=== PATIENT | male | born 1950 | race African-American/Black ===

== ENCOUNTER → 2016-09-02 | Day surgery (SDC) | payer MEDICARE, MEDICAID ==
[~2016-09-02] MED LIST: LIDOCAINE HCL 1% 20ML VIAL (Pyxis) INJ ONE; SODIUM BICARBONATE 8.4% 1 MEQ/ML 50ML SYR IV ONE
[2016-09-02 17:38] LABS: BODY FLUID MONOCYTES 76 %; BODY FLUID WBC 28 /cu mm (0-200)
[2016-09-02 18:28] LABS: PROTEIN BODY FLUID 1.3 gm/dL
== END | disposition home or self-care (01) ==
LOC: RAD 11:28
PROVIDERS: ATTEND Internal Medicine Gastroenterology
DX: R18.8 Other ascites (principal); K74.69 Other cirrhosis of liver; K75.89 Other specified inflammatory liver diseases
CPT/HCPCS: 49083; 82040; 83615; 84157; 87070; 87205; 89050; J3490

== ENCOUNTER → 2016-10-22 | Outpatient (CLI) | payer MEDICARE, MEDICAID ==
[2016-10-22 15:58] LABS: HEMOGLOBIN. 10.8 g/dL (14.0-18.0); MEAN CORPUSCULAR HEMOGLOBIN 28.2 pg (28.0-32.0); MEAN CORPUSCULAR HGB CONC 32.6 g/dL (31.0-37.0); MEAN CORPUSCULAR VOLUME 86.5 fL (80.0-94.0); MEAN PLATELET VOLUME 8.4 fl (7.4-10.4); PLATELET 107 x1000/uL (130-400); RED BLOOD CELL COUNT 3.81 mill/uL (4.7-6.1); RED CELL DISTRIBUTION WIDTH 14.5 % (11.6-14.6); WHITE BLOOD COUNT 3.8 x1000/uL (4.5-11.0)
[2016-10-22 16:02] LABS: DIFFERENTIAL COMMENT 1
[2016-10-22 16:03] LABS: INR 1.1; PARTIAL THROMBOPLASTIN TIME 27.3 sec (24.0-34.0); PROTHROMBIN TIME 11.6 sec
[2016-10-22 17:28] LABS: ANISOCYTOSIS 1+; ATYPICAL LYMPHOCYTES 1
[2016-10-22 17:30] LABS: GIANT PLATELETS FEW; PLATELET ESTIMATE SLIGHTLY DECREASED; PLATELET SATELLITISM FEW
== END | disposition home or self-care (01) ==
LOC: LAB 15:32
PROVIDERS: ATTEND Specialist
DX: R18.8 Other ascites (principal); I21.3 ST elevation (STEMI) myocardial infarction of unspecified site
CPT/HCPCS: 36415; 85025; 85610; 85730

== ENCOUNTER → 2016-10-30 | Day surgery (SDC) | payer MEDICARE, MEDICAID | END | disposition home or self-care (01) | LOC: RAD 12:51 | PROVIDERS: ATTEND Specialist | DX: R18.8 Other ascites (principal) | CPT/HCPCS: 49083; J3490 ==

== ENCOUNTER → 2016-11-28 | Day surgery (SDC) | payer MEDICARE, MEDICAID ==
[2016-11-28 08:37] LABS: BASOPHILS % 1.1 % (0.0-2.0); EOSINOPHILS % 5.5 % (0.0-5.0); HEMATOCRIT. 35.2 % (42.0-52.0); HEMOGLOBIN. 11.4 g/dL (14.0-18.0); LYMPHOCYTES % 40.2 % (20.0-50.0); MEAN CORPUSCULAR HEMOGLOBIN 28.1 pg (28.0-32.0); MEAN CORPUSCULAR VOLUME 87.1 fL (80.0-94.0); NEUTROPHILS % 42.2 % (40.0-76.0); PLATELET 135 x1000/uL (130-400); RED BLOOD CELL COUNT 4.05 mill/uL (4.7-6.1); RED CELL DISTRIBUTION WIDTH 15.1 % (11.6-14.6)
[2016-11-28 08:46] LABS: INR 1.1; PARTIAL THROMBOPLASTIN TIME 27.3 sec (24.0-34.0); PROTHROMBIN TIME 11.2 sec
[2016-11-28 08:58] LABS: AMMONIA 22 uMol/L (<32); CARBON DIOXIDE 30 mEq/L (21-32); CHLORIDE 110 mEq/L (98-107)
== END | disposition home or self-care (01) ==
LOC: US 08:07
PROVIDERS: ATTEND Specialist
DX: R18.8 Other ascites (principal)
CPT/HCPCS: 36415; 49083; 80053; 82140; 85025; 85610; 85730

== ENCOUNTER → 2016-12-17 | Day surgery (SDC) | payer MEDICARE, MEDICAID ==
[~2016-12-17] MED LIST changes: +SODIUM BICARBONATE 4% (2.4MEQ) 5ML VIAL IV ONE; -SODIUM BICARBONATE 8.4% 1 MEQ/ML 50ML SYR IV ONE
== END | disposition home or self-care (01) ==
LOC: RAD 10:38
PROVIDERS: ATTEND Internal Medicine Gastroenterology
DX: R18.8 Other ascites (principal)
CPT/HCPCS: 49083; J3490

== ENCOUNTER 2017-01-06 18:45 | Inpatient (IN) | payer MEDICARE, MEDICAID ==
[~2017-01-06] VITALS: Ht 167.6 cm; Wt 73.0 kg
[2017-01-06 20:00] VITALS: BP 129/70
[2017-01-06] MEDS ORDERED: CLONIDINE 0.1MG TABLET NG PRN (21:00)
[2017-01-06] MEDS ORDERED: ONDANSETRON HCL 4MG/2ML VIAL IV PRN (21:00)
[2017-01-06] MEDS ORDERED: DIPHENHYDRAMINE 50MG/ML VIAL IV PRN (21:00)
[2017-01-06] MEDS ORDERED: GUAIFENESIN 200MG/10ML SUGAR FREE UDC NG PRN (21:00)
[2017-01-06] MEDS ORDERED: IPRATROPIUM/ALBUTEROL 0.5-3(2.5)MG/3ML NEB HHN PRN (21:00)
[2017-01-06] MEDS ORDERED: NITROGLYCERIN 0.4MG TABLET SL SL PRN (21:00)
[2017-01-06] MEDS ORDERED: NA PHOS,M-B/NA PHOS,DI-BA ENEMA 118ML PR PRN (21:48)
[2017-01-06] MEDS ORDERED: MAGNESIUM/ALUMINUM HYDROXIDE/SIMETHICONE 30ML UDC NG PRN (21:48)
[2017-01-07] MEDS: ATORVASTATIN CALCIUM 10MG TABLET NG SCH ×2 (00:28→21:32)
[2017-01-07] MEDS: LEVETIRACETAM 500MG/5ML CUP NG SCH ×3 (00:28→21:32)
[2017-01-07] MEDS: ACETAMINOPHEN 650MG/20.3ML UDC NG PRN ×3 (00:28→13:09)
[2017-01-07 07:27] LABS: HEMATOCRIT 33.5 % (42.0-52.0); HEMOGLOBIN 10.7 g/dL (14.0-18.0); MEAN CORPUSCULAR HEMOGLOBIN 28.3 pg (28.0-32.0); MEAN CORPUSCULAR VOLUME 88.7 fL (80.0-94.0); PLATELET 97 x1000/uL (130-400); RED BLOOD CELL COUNT 3.78 mill/uL (4.7-6.1)
[2017-01-07 07:54] LABS: CARBON DIOXIDE 25 mEq/L (21-32); CHLORIDE 115 mEq/L (98-107)
[2017-01-07 08:00] VITALS: BP 119/62
[2017-01-07 08:00] LABS: PREALBUMIN 10.3 mg/dL (20.0-40.0)
[2017-01-07] MEDS: ASPIRIN 81MG TABLET NG SCH (08:34)
[2017-01-07] MEDS: ZINC SULFATE 220 MG ( 50 ) CAPSULE NG SCH (08:34)
[2017-01-07] MEDS: ENOXAPARIN 40MG/0.4ML SYR SUBCUT SCH (08:35)
[2017-01-07] MEDS ORDERED: PANTOPRAZOLE SODIUM 40 MG/VIAL IV SCH (09:00)
[2017-01-07] MEDS ORDERED: DOCUSATE SODIUM 100MG CAPSULE NG SCH (09:00)
[2017-01-07 11:57] VITALS: BP 119/62
[2017-01-07] MEDS ORDERED: SODIUM POLYSTYRENE SULFONATE 15 G/60 ML BOT PO NR (15:15)
[2017-01-07] MEDS ORDERED: CEFTRIAXONE 2 G in DEXTROSE 5% WATER 50 ML IV SCH (16:00)
[2017-01-07 20:00] VITALS: BP 108/65
[2017-01-08] MEDS: ACETAMINOPHEN 650MG/20.3ML UDC NG PRN ×3 (04:29→18:51)
[2017-01-08 06:12] LABS: BASOPHILS % 1.1 % (0.0-2.0); EOSINOPHILS % 2.7 % (0.0-5.0); HEMATOCRIT. 31.2 % (42.0-52.0); HEMOGLOBIN. 10.1 g/dL (14.0-18.0); LYMPHOCYTES % 19.4 % (20.0-50.0); MEAN CORPUSCULAR HEMOGLOBIN 28.5 pg (28.0-32.0); MEAN CORPUSCULAR VOLUME 87.6 fL (80.0-94.0); MEAN PLATELET VOLUME 8.6 fl (7.4-10.4); MONOCYTES % 6.6 % (2.0-8.0); NEUTROPHILS % 70.2 % (40.0-76.0); PLATELET 82 x1000/uL (130-400); RED BLOOD CELL COUNT 3.56 mill/uL (4.7-6.1); RED CELL DISTRIBUTION WIDTH 16.2 % (11.6-14.6)
[2017-01-08 06:31] LABS: CARBON DIOXIDE 26 mEq/L (21-32); CHLORIDE 117 mEq/L (98-107)
[2017-01-08 07:58] VITALS: BP 122/68
[2017-01-08] MEDS ORDERED: PANTOPRAZOLE 40MG DR TABLET PO SCH (10:00)
[2017-01-08] MEDS: DOCUSATE SODIUM SUGAR FREE 100MG/10ML UDC NG SCH (10:59)
[2017-01-08] MEDS: ASPIRIN 81MG TABLET NG SCH (10:59)
[2017-01-08] MEDS: LEVETIRACETAM 500MG/5ML CUP NG SCH ×2 (10:59→23:37)
[2017-01-08] MEDS: ZINC SULFATE 220 MG ( 50 ) CAPSULE NG SCH (10:59)
[2017-01-08] MEDS ORDERED: LANSOPRAZOLE 30MG DR CAPSULE NG SCH (11:00)
[2017-01-08] MEDS: ENOXAPARIN 40MG/0.4ML SYR SUBCUT SCH (11:00)
[2017-01-08] MEDS: METOCLOPRAMIDE 10MG/10 ML UDC NG SCH ×2 (18:51→23:37)
[2017-01-08] MEDS: CEFTRIAXONE 2 G in DEXTROSE 5% WATER 50 ML IV SCH (18:51)
[2017-01-08 20:00] VITALS: BP 122/84
[2017-01-08] MEDS: LACTULOSE 20G/30ML UDC NG PRN (23:38)
[2017-01-08] MEDS: ATORVASTATIN CALCIUM 10MG TABLET NG SCH (23:39)
[2017-01-09] MEDS: METOCLOPRAMIDE 10MG/10 ML UDC NG SCH ×4 (06:37→23:56)
[2017-01-09] MEDS: LANSOPRAZOLE 30MG DR CAPSULE NG SCH (06:38)
[2017-01-09 07:00] LABS: EOSINOPHILS % 3.1 % (0.0-5.0); HEMATOCRIT. 32.6 % (42.0-52.0); HEMOGLOBIN. 10.6 g/dL (14.0-18.0); LYMPHOCYTES % 24.1 % (20.0-50.0); MEAN CORPUSCULAR HEMOGLOBIN 28.6 pg (28.0-32.0); MEAN CORPUSCULAR VOLUME 87.7 fL (80.0-94.0); MEAN PLATELET VOLUME 9.6 fl (7.4-10.4); MONOCYTES % 7.3 % (2.0-8.0); NEUTROPHILS % 64.5 % (40.0-76.0); PLATELET 84 x1000/uL (130-400); RED BLOOD CELL COUNT 3.72 mill/uL (4.7-6.1); RED CELL DISTRIBUTION WIDTH 16.2 % (11.6-14.6)
[2017-01-09 07:39] LABS: CARBON DIOXIDE 25 mEq/L (21-32); CHLORIDE 117 mEq/L (98-107); PHOSPHORUS 3.3 mg/dL (2.5-4.9); TOTAL IRON BINDING CAPACITY 210 ug/dL (250-450)
[2017-01-09 07:56] LABS: FOLIC ACID (FOLATE) SERUM 15.5 ng/mL (>5.38)
[2017-01-09 08:00] VITALS: BP 107/71
[2017-01-09] MEDS: LACTULOSE 20G/30ML UDC NG PRN (08:57)
[2017-01-09] MEDS: ASPIRIN 81MG TABLET NG SCH (08:57)
[2017-01-09] MEDS: DOCUSATE SODIUM SUGAR FREE 100MG/10ML UDC NG SCH (08:57)
[2017-01-09] MEDS: ZINC SULFATE 220 MG ( 50 ) CAPSULE NG SCH (08:57)
[2017-01-09] MEDS: ACETAMINOPHEN 650MG/20.3ML UDC NG PRN ×2 (08:57→20:25)
[2017-01-09] MEDS: ENOXAPARIN 40MG/0.4ML SYR SUBCUT SCH (08:59)
[2017-01-09] MEDS: LEVETIRACETAM 500MG/5ML CUP NG SCH ×2 (09:02→20:25)
[2017-01-09] MEDS: CEFTRIAXONE 2 G in DEXTROSE 5% WATER 50 ML IV SCH (16:09)
[2017-01-09] MEDS: ATORVASTATIN CALCIUM 10MG TABLET NG SCH (20:24)
[2017-01-09 20:27] LABS: CLARITY URINE CLOUDY (CLEAR); COLOR URINE DARK YELLOW (YELLOW); GLUCOSE URINE NEGATIVE (NEGATIVE); KETONES URINE NEGATIVE (NEGATIVE); LEUKOCYTE ESTERASE URINE 2+ (NEGATIVE); NITRITE URINE NEGATIVE (NEGATIVE); OCCULT BLOOD URINE 1+ (NEGATIVE); PH URINE 5.5 (4.5-8.0); PROTEIN URINE 2+ (NEGATIVE); SPECIFIC GRAVITY URINE 1.034 (1.005-1.030)
[2017-01-09 20:44] VITALS: BP 122/71
[2017-01-10] MEDS: LANSOPRAZOLE 30MG DR CAPSULE NG SCH (06:50)
[2017-01-10] MEDS: METOCLOPRAMIDE 10MG/10 ML UDC NG SCH ×4 (06:50→23:33)
[2017-01-10 08:00] VITALS: BP 117/80
[2017-01-10] MEDS: LEVETIRACETAM 500MG/5ML CUP NG SCH ×2 (09:46→20:55)
[2017-01-10] MEDS: ZINC SULFATE 220 MG ( 50 ) CAPSULE NG SCH (09:46)
[2017-01-10] MEDS: DOCUSATE SODIUM SUGAR FREE 100MG/10ML UDC NG SCH (09:46)
[2017-01-10] MEDS: ASPIRIN 81MG TABLET NG SCH (09:46)
[2017-01-10] MEDS: ENOXAPARIN 40MG/0.4ML SYR SUBCUT SCH (09:47)
[2017-01-10] MEDS ORDERED: ONDANSETRON HCL 4MG/2ML VIAL IV PRN (15:45)
[2017-01-10] MEDS ORDERED: DIPHENHYDRAMINE 50MG/ML VIAL IV PRN (15:45)
[2017-01-10] MEDS: CEFTRIAXONE 2 G in DEXTROSE 5% WATER 50 ML IV SCH (16:51)
[2017-01-10 20:00] VITALS: BP 122/72
[2017-01-10] MEDS: ATORVASTATIN CALCIUM 10MG TABLET NG SCH (20:55)
[2017-01-11] MEDS: ACETAMINOPHEN 650MG/20.3ML UDC NG PRN (06:20)
[2017-01-11] MEDS: METOCLOPRAMIDE 10MG/10 ML UDC NG SCH ×3 (06:20→17:26)
[2017-01-11] MEDS: LANSOPRAZOLE 30MG DR CAPSULE NG SCH (06:24)
[2017-01-11 07:54] VITALS: BP 98/72
[2017-01-11] MEDS: DOCUSATE SODIUM SUGAR FREE 100MG/10ML UDC NG SCH (09:00)
[2017-01-11] MEDS: LEVETIRACETAM 500MG/5ML CUP NG SCH ×2 (09:48→21:54)
[2017-01-11] MEDS: ZINC SULFATE 220 MG ( 50 ) CAPSULE NG SCH (09:49)
[2017-01-11] MEDS: ASPIRIN 81MG TABLET NG SCH (09:49)
[2017-01-11] MEDS: ENOXAPARIN 40MG/0.4ML SYR SUBCUT SCH (09:50)
[2017-01-11] MEDS: CEFTRIAXONE 2 G in DEXTROSE 5% WATER 50 ML IV SCH (15:47)
[2017-01-11 20:00] VITALS: BP 120/76
[2017-01-11] MEDS: ATORVASTATIN CALCIUM 10MG TABLET NG SCH (21:54)
[2017-01-11] MEDS: ASCORBIC ACID 500MG/5ML 120ML NG SCH (21:54)
[2017-01-12] MEDS: METOCLOPRAMIDE 10MG/10 ML UDC NG SCH ×4 (00:20→18:34)
[2017-01-12] MEDS: LANSOPRAZOLE 30MG DR CAPSULE NG SCH (06:48)
[2017-01-12 06:53] LABS: BASOPHILS % 0.7 % (0.0-2.0); EOSINOPHILS % 1.5 % (0.0-5.0); HEMATOCRIT. 27.9 % (42.0-52.0); HEMOGLOBIN. 9.2 g/dL (14.0-18.0); LYMPHOCYTES % 17.4 % (20.0-50.0); MEAN CORPUSCULAR HEMOGLOBIN 28.7 pg (28.0-32.0); MEAN PLATELET VOLUME 10.7 fl (7.4-10.4); MONOCYTES % 8.6 % (2.0-8.0); NEUTROPHILS % 71.8 % (40.0-76.0); PLATELET 85 x1000/uL (130-400); RED BLOOD CELL COUNT 3.21 mill/uL (4.7-6.1)
[2017-01-12 07:08] LABS: CARBON DIOXIDE 24 mEq/L (21-32); CHLORIDE 113 mEq/L (98-107); PHOSPHORUS 3.6 mg/dL (2.5-4.9); T4 FREE 0.98 ng/dL (0.76-1.46)
[2017-01-12 08:00] VITALS: BP 131/75
[2017-01-12] MEDS: DOCUSATE SODIUM SUGAR FREE 100MG/10ML UDC NG SCH (09:00)
[2017-01-12 13:07] LABS: 25-HYDROXY VITAMIN D3 20 ng/mL (.)
[2017-01-12] MEDS: MULTIVITAMINS,THER W-MINERALS TABLET NG SCH (13:39)
[2017-01-12] MEDS: LEVETIRACETAM 500MG/5ML CUP NG SCH ×2 (13:39→22:38)
[2017-01-12] MEDS: ZINC SULFATE 220 MG ( 50 ) CAPSULE NG SCH (13:39)
[2017-01-12] MEDS: ASPIRIN 81MG TABLET NG SCH (13:39)
[2017-01-12] MEDS: ENOXAPARIN 40MG/0.4ML SYR SUBCUT SCH (13:40)
[2017-01-12] MEDS: ASCORBIC ACID 500MG/5ML 120ML NG SCH ×2 (13:41→22:38)
[2017-01-12] MEDS: CEFTRIAXONE 2 G in DEXTROSE 5% WATER 50 ML IV SCH (16:44)
[2017-01-12 20:00] VITALS: BP 112/73
[2017-01-12] MEDS: ATORVASTATIN CALCIUM 10MG TABLET NG SCH (22:38)
[2017-01-13] MEDS: METOCLOPRAMIDE 10MG/10 ML UDC NG SCH ×4 (01:26→18:19)
[2017-01-13] MEDS: LANSOPRAZOLE 30MG DR CAPSULE NG SCH (06:57)
[2017-01-13 07:58] VITALS: BP 136/81
[2017-01-13] MEDS: DOCUSATE SODIUM SUGAR FREE 100MG/10ML UDC NG SCH (08:49)
[2017-01-13] MEDS: ZINC SULFATE 220 MG ( 50 ) CAPSULE NG SCH (08:55)
[2017-01-13] MEDS: ASPIRIN 81MG TABLET NG SCH (08:55)
[2017-01-13] MEDS: LEVETIRACETAM 500MG/5ML CUP NG SCH ×2 (08:55→20:47)
[2017-01-13] MEDS: MULTIVITAMINS,THER W-MINERALS TABLET NG SCH (08:55)
[2017-01-13] MEDS: ENOXAPARIN 40MG/0.4ML SYR SUBCUT SCH (08:57)
[2017-01-13] MEDS: ASCORBIC ACID 500MG/5ML 120ML NG SCH ×2 (08:58→20:48)
[2017-01-13] MEDS: ACETAMINOPHEN 650MG/20.3ML UDC NG PRN (11:37)
[2017-01-13] MEDS: CEFTRIAXONE 2 G in DEXTROSE 5% WATER 50 ML IV SCH (18:19)
[2017-01-13 20:37] VITALS: BP 110/70
[2017-01-13] MEDS: ATORVASTATIN CALCIUM 10MG TABLET NG SCH (20:47)
[2017-01-14] MEDS: METOCLOPRAMIDE 10MG/10 ML UDC NG SCH ×3 (03:17→12:52)
[2017-01-14] MEDS: LANSOPRAZOLE 30MG DR CAPSULE NG SCH (06:27)
[2017-01-14 07:55] LABS: CARBON DIOXIDE 26 mEq/L (21-32); CHLORIDE 113 mEq/L (98-107)
[2017-01-14 08:00] VITALS: BP 106/64
[2017-01-14 08:45] VITALS: BP 108/62
[2017-01-14] MEDS: ASPIRIN 81MG TABLET NG SCH (09:57)
[2017-01-14] MEDS: ZINC SULFATE 220 MG ( 50 ) CAPSULE NG SCH (09:57)
[2017-01-14] MEDS: LEVETIRACETAM 500MG/5ML CUP NG SCH (09:57)
[2017-01-14] MEDS: MULTIVITAMINS,THER W-MINERALS TABLET NG SCH (09:57)
[2017-01-14] MEDS: ENOXAPARIN 40MG/0.4ML SYR SUBCUT SCH (09:57)
[2017-01-14] MEDS: DOCUSATE SODIUM SUGAR FREE 100MG/10ML UDC NG SCH (09:57)
[2017-01-14] MEDS: ASCORBIC ACID 500MG/5ML 120ML NG SCH (09:58)
[2017-01-14] MEDS: ACETAMINOPHEN 650MG/20.3ML UDC NG PRN (10:04)
[2017-01-14 11:20] VITALS: BP 111/79
[2017-01-14 13:51] VITALS: BP 111/79
== END 2017-01-14 14:21 | disposition short-term general hospital (02) | DRG 64 ==
PROVIDERS: ADMIT Physical Medicine & Rehabilitation Spinal Cord Injury Medicine; ATTEND Internal Medicine
PROC: 0W9G3ZZ Drainage of Peritoneal Cavity, Percutaneous Approach (ICD-10-PCS; principal; 2017-01-06)
DX: I63.9 Cerebral infarction, unspecified (principal); E43 Unspecified severe protein-calorie malnutrition; A40.9 Streptococcal sepsis, unspecified; R41.4 Neurologic neglect syndrome; N39.0 Urinary tract infection, site not specified; N17.9 Acute kidney failure, unspecified; M62.82 Rhabdomyolysis; I31.3 Pericardial effusion (noninflammatory); G81.94 Hemiplegia, unspecified affecting left nondominant side; E87.2 Acidosis; D68.9 Coagulation defect, unspecified; R64 Cachexia; I82.411 Acute embolism and thrombosis of right femoral vein; L03.119 Cellulitis of unspecified part of limb; I10 Essential (primary) hypertension; R47.01 Aphasia; R13.10 Dysphagia, unspecified; K42.9 Umbilical hernia without obstruction or gangrene; I35.0 Nonrheumatic aortic (valve) stenosis; H53.462 Homonymous bilateral field defects, left side; G89.29 Other chronic pain; G40.909 Epilepsy, unspecified, not intractable, without status epilepticus; F14.10 Cocaine abuse, uncomplicated; F10.20 Alcohol dependence, uncomplicated; F01.50 Vascular dementia, unspecified severity, without behavioral disturbance, psychotic disturbance, mood disturbance, and anxiety; F39 Unspecified mood [affective] disorder; D69.6 Thrombocytopenia, unspecified; D64.9 Anemia, unspecified; B19.20 Unspecified viral hepatitis C without hepatic coma; R47.1 Dysarthria and anarthria; R26.89 Other abnormalities of gait and mobility; M54.9 Dorsalgia, unspecified; H53.47 Heteronymous bilateral field defects; B96.1 Klebsiella pneumoniae [K. pneumoniae] as the cause of diseases classified elsewhere; K70.31 Alcoholic cirrhosis of liver with ascites; M71.22 Synovial cyst of popliteal space [Baker], left knee; K80.50 Calculus of bile duct without cholangitis or cholecystitis without obstruction; K40.90 Unilateral inguinal hernia, without obstruction or gangrene, not specified as recurrent; J44.9 Chronic obstructive pulmonary disease, unspecified; I25.10 Atherosclerotic heart disease of native coronary artery without angina pectoris; F17.210 Nicotine dependence, cigarettes, uncomplicated; B95.4 Other streptococcus as the cause of diseases classified elsewhere; Z95.2 Presence of prosthetic heart valve; Z68.26 Body mass index [BMI] 26.0-26.9, adult
CPT/HCPCS: 36415; 70450; 71010; 74176; 80048; 80053; 80061; 81001; 82270; 82306; 82607; 82728; 82746; 83036; 83540; 83550; 83735; 84100; 84134; 84439; 84443; 84481; 84630; 85025; 85027; 87086; 92610; 93306; 93970; 97110; 97112; 97163; 97167; 97530; 97535; A6261; C1893; C9113; J0696; J1200; J1650; J7050; J7060; J8597; A5200